=== PATIENT | male | born 1930 | race Caucasian/White ===

== ENCOUNTER 2018-05-21 12:02 | Inpatient (IN) | payer MEDICARE ==
[2018-05-21] MEDS ORDERED: Ondansetron ODT 4 MG TAB PO PRN (16:57)
[2018-05-21 17:06] VITALS: BMI 21.2
--- NOTE | 2018-05-22 00:18 | HP ---
REASON FOR ADMISSION TO SWING BED: Diffuse weakness, debilitation, and recent falls. HISTORY OF PRESENT ILLNESS: The patient is an 88-year-old white male who has had a fairly healthy life, who over the last few weeks has had some rapid decline in balance since [place] time and has had frequent falls. Apparently, prior to admission, he lost his balance and fell while in the kitchen and could not get up. He was found the next day by a friend and taken to the emergency room. The patient had CT scan and MRI of the brain, which showed cerebral atrophy, but no actual acute changes. He underwent a carotid ultrasound as well as a CT angio of the vascular system which showed no significant stenosis. He was observed in Telemetry and had no significant arrhythmias, but continued to be weak, debilitating, and required a walker with unsteady gait. Due to his increased risk of falls and recent decline in status, he was found appropriate to transfer to [facility] for correction care. PAST MEDICAL HISTORY: Includes: 1. Benign prostatic hypertrophy. 2. Dyslipidemia. 3. Elevated blood pressure. PAST SURGICAL HISTORY: Includes tonsillectomy. SOCIAL HISTORY: The patient drinks one to two glasses of wine on a daily basis and no significant smoking or other social drug use. The patient had been independent in activities of daily living, but he does live alone and is elderly. FAMILY HISTORY: No significant family history of CVA or coronary artery disease. MEDICATIONS: 1. Flomax 0.4 mg daily. 2. Aspirin 81 mg daily. 3. Finasteride 5 mg daily. REVIEW OF SYSTEMS: See recent history and physical. The patient presently does report some generalized weakness and some increasing forgetfulness with short-term memory, but otherwise denies any fevers, chills, or night sweats. No nausea, vomiting, or diarrhea. No chest pain or shortness of breath. The patient denies any palpitations. No obvious syncopal spells. The patient denies dysuria, hematuria, or change in urinary frequency. No weight gain or weight loss. The patient denies depression. PHYSICAL EXAMINATION: GENERAL: Elderly white male, pleasant, in no obvious distress. VITAL SIGNS: Significant for blood pressure 162/88, respiratory rate was 16, pulse was 82. O2 sat is 97% on room air. HEENT: Atraumatic and normocephalic. Extraocular movements are intact. Pupils are equal, round, and reactive to light and accommodation. Oropharynx, mucous membranes moist. No exudates, discharge, or lesions. NECK: Supple. No masses palpated. No bruits auscultated. CHEST: Clear to auscultation bilaterally. HEART: Regular rate and rhythm without murmurs, rubs, or gallops. ABDOMEN: Soft, nontender, and nondistended. No masses are palpated. EXTREMITIES: Show thin extremities but no cyanosis, clubbing, or edema. There was some chronic contracture of the right third, fourth, and fifth fingers. ASSESSMENT AND PLAN: 1. Recent fall with generalized weakness, suspect this to be multifactorial, workup showed no significant cardiovascular new neurological reasons acutely to cause his recent decline, likely related to age, some decreased proprioception and overall debilitation while living alone. The patient is appropriate to be admitted to swing bed for skilled therapy, including occupational therapy and physical therapy. We will also try to encourage diet with high-calorie shakes to increase his overall muscle weight and we will discuss with family disposition. 2. Hypertension, new onset diagnosis. The patient was started on amlodipine. We will follow his blood pressure. 3. Benign prostatic hypertrophy. Continue his current medications. 4. Disposition: The patient wishes to be a DNAR, to discuss with patient and daughter in detail. All questions were answered. The patient would like to go back to home, but discussed the need for likely long-term aid and daily care assistance. We will see how he improves with his physical and occupational therapies. Job ID: [id number]
[2018-05-22] MEDS ORDERED: Albuterol Sulfate 1.25 MG/3 ML NEB ONE (06:56)
[2018-05-22] MEDS: Tamsulosin HCl 0.4 MG CAP PO SCH (09:15)
[2018-05-22] MEDS: Amlodipine 5 MG TAB PO SCH (09:15)
[2018-05-22] MEDS: Aspirin 81 mg Enteric Coated Tablet PO SCH (09:15)
[2018-05-22] MEDS: Finasteride 5 MG TAB PO SCH ×2 (11:17→14:19)
--- NOTE | 2018-05-22 13:08 | RAD ---
RIGHT HIP 2 VIEWS: DATE: 05/22/2018. FINDINGS: Mild degenerative changes are seen consisting of small osteophytes and slight joint space narrowing. The appearance of the hip is fairly similar to the opposite side. No fracture or area of bony destr uction was seen. The bony pelvis was unremarkable. There are substantial degenerative changes in th e lower lumbar spine, especially at L4-L5. IMPRESSION: Mild degenerative changes of the hip. Prominent degenerative changes of the lower lumbar spine. POS: HOME
[2018-05-22 14:10] LABS: Clarity Clear (Clear); Glucose, Urine (Dipstick) Negative (Negative); Leukocyte Negative (Negative); Nitrite Negative (Negative); Protein, Urine (Dipstick) 100 mg/dL (Neg-Trace); Specific Gravity, Urine 1.015 (1.005-1.030)
[2018-05-22 14:11] LABS: Bacteria/HPF None Seen HPF (None Seen); Bilirubin Negative (Negative); Blood, Urine Trace (Negative); Crystals/HPF None Seen HPF (Negative); Hyaline Casts/LPF NONE SEEN LPF (0-3 Hyaline); Other Casts/LPF None Seen LPF (0-3 Hyaline); Oval Fat Bodies/HPF None Seen HPF (None Seen); Renal Epithelial None Seen HPF (0-3); Sperm/HPF None Seen HPF (None Seen); Squamous Epithelial None Seen HPF (0-3); Transitional Epithelial NONE SEEN HPF (0-3); Trichomonas/HPF None Seen HPF (None Seen); Urobilinogen > or = 8.0 mg/dL (0.2-1.0); WBC/HPF None Seen HPF (0-3); Yeast-All Forms None Seen HPF (None Seen)
[2018-05-22] MEDS ORDERED: Gentamicin Ophth Soln 0.3% 5 ml Bottle ONE (16:26)
[2018-05-22] MEDS: Gentamicin Ophth Soln 0.3% 5 ml Bottle EA EYE SCH ×2 (16:34→21:45)
[2018-05-22] MEDS ORDERED: Cefuroxime 500 MG TAB ONE (21:23)
[2018-05-22] MEDS: Cefuroxime 500 MG TAB PO SCH (21:46)
[2018-05-23] MEDS: Gentamicin Ophth Soln 0.3% 5 ml Bottle EA EYE SCH ×6 (01:29→21:07)
[2018-05-23 05:06] LABS: ALT (SGPT) 36 U/L (8-55); AST (SGOT) 31 U/L (5-34); Alkaline Phosphatase 62 U/L (40-150); Anion Gap 12 mmol/L (10-20); BUN (Urea Nitrogen) 13 mg/dL (8.4-25.7); Bilirubin, Total 0.6 mg/dL (0.2-1.2); Calc. Creatinine Clearance 47 mL/min (70-130); Calcium 9.7 mg/dL (7.8-10.44); Carbon Dioxide 26 mmol/L (23-31); Chloride 102 mmol/L (98-107); Estimated GFR-MDRD 64; Globulin 3.1 g/dL (2.4-3.5); Glucose 125 mg/dL (83-110); Potassium 3.3 mmol/L (3.5-5.1); Protein, Total 6.1 g/dL (5.8-8.1); Sodium 137 mmol/L (136-145)
[2018-05-23] MEDS ORDERED: Cefuroxime 500 MG TAB ONE ×2 (08:36→20:17)
[2018-05-23] MEDS: Finasteride 5 MG TAB PO SCH (08:39)
[2018-05-23] MEDS: Cefuroxime 500 MG TAB PO SCH ×2 (08:40→21:07)
[2018-05-23] MEDS: Aspirin 81 mg Enteric Coated Tablet PO SCH (08:40)
[2018-05-23] MEDS: Amlodipine 5 MG TAB PO SCH (08:41)
[2018-05-23] MEDS: Tamsulosin HCl 0.4 MG CAP PO SCH (08:42)
[2018-05-23] MEDS: Acetaminophen 325 MG TAB PO PRN (13:53)
[2018-05-24] MEDS: Gentamicin Ophth Soln 0.3% 5 ml Bottle EA EYE SCH ×6 (00:33→20:58)
[2018-05-24] MEDS: Cefuroxime 500 MG TAB PO SCH ×2 (08:35→20:59)
[2018-05-24] MEDS: Tamsulosin HCl 0.4 MG CAP PO SCH (08:36)
[2018-05-24] MEDS: Aspirin 81 mg Enteric Coated Tablet PO SCH (08:37)
[2018-05-24] MEDS: Finasteride 5 MG TAB PO SCH (08:37)
[2018-05-24] MEDS: Amlodipine 5 MG TAB PO SCH (08:37)
[2018-05-24] MEDS: Potassium Chloride 10 MEQ TAB PO SCH (08:38)
[2018-05-24] MEDS: Fluticasone Propionate Nasal Spray 16 gm Bottle NASAL SCH (10:53)
[2018-05-24] MEDS: Acetaminophen 325 MG TAB PO PRN (20:59)
[2018-05-24] MEDS: Docusate 100 MG CAP PO PRN (20:59)
[2018-05-25] MEDS: Gentamicin Ophth Soln 0.3% 5 ml Bottle EA EYE SCH ×6 (01:04→20:19)
[2018-05-25] MEDS: Fluticasone Propionate Nasal Spray 16 gm Bottle NASAL SCH (09:30)
[2018-05-25] MEDS: Finasteride 5 MG TAB PO SCH (09:31)
[2018-05-25] MEDS: Potassium Chloride 10 MEQ TAB PO SCH (09:31)
[2018-05-25] MEDS: Tamsulosin HCl 0.4 MG CAP PO SCH (09:31)
[2018-05-25] MEDS: Cefuroxime 500 MG TAB PO SCH ×2 (09:31→20:19)
[2018-05-25] MEDS: Aspirin 81 mg Enteric Coated Tablet PO SCH (09:32)
[2018-05-25] MEDS: Amlodipine 5 MG TAB PO SCH (09:34)
[2018-05-25] MEDS: Acetaminophen 325 MG TAB PO PRN (09:38)
[2018-05-26] MEDS: Gentamicin Ophth Soln 0.3% 5 ml Bottle EA EYE SCH ×6 (01:25→21:11)
[2018-05-26] MEDS: Fluticasone Propionate Nasal Spray 16 gm Bottle NASAL SCH (08:27)
[2018-05-26] MEDS: Amlodipine 5 MG TAB PO SCH (08:27)
[2018-05-26] MEDS: Potassium Chloride 10 MEQ TAB PO SCH (08:28)
[2018-05-26] MEDS: Tamsulosin HCl 0.4 MG CAP PO SCH (08:28)
[2018-05-26] MEDS: Finasteride 5 MG TAB PO SCH (08:28)
[2018-05-26] MEDS: Aspirin 81 mg Enteric Coated Tablet PO SCH (08:28)
[2018-05-26] MEDS ORDERED: Cefuroxime 500 MG TAB ONE (08:35)
[2018-05-26] MEDS: Cefuroxime 500 MG TAB PO SCH ×2 (08:36→21:11)
[2018-05-27] MEDS: Gentamicin Ophth Soln 0.3% 5 ml Bottle EA EYE SCH ×6 (00:07→21:20)
[2018-05-27] MEDS: Fluticasone Propionate Nasal Spray 16 gm Bottle NASAL SCH (08:29)
[2018-05-27] MEDS: Finasteride 5 MG TAB PO SCH (08:30)
[2018-05-27] MEDS: Amlodipine 5 MG TAB PO SCH (08:30)
[2018-05-27] MEDS: Aspirin 81 mg Enteric Coated Tablet PO SCH (08:30)
[2018-05-27] MEDS: Tamsulosin HCl 0.4 MG CAP PO SCH (08:30)
[2018-05-27] MEDS: Potassium Chloride 10 MEQ TAB PO SCH (08:31)
[2018-05-27] MEDS ORDERED: Cefuroxime 500 MG TAB ONE (08:40)
[2018-05-27] MEDS: Cefuroxime 500 MG TAB PO SCH ×2 (08:43→21:20)
[2018-05-28] MEDS: Gentamicin Ophth Soln 0.3% 5 ml Bottle EA EYE SCH ×6 (01:57→21:06)
[2018-05-28] MEDS ORDERED: Cefuroxime 500 MG TAB ONE (08:31)
[2018-05-28] MEDS: Fluticasone Propionate Nasal Spray 16 gm Bottle NASAL SCH (08:45)
[2018-05-28] MEDS: Tamsulosin HCl 0.4 MG CAP PO SCH (08:46)
[2018-05-28] MEDS: Amlodipine 5 MG TAB PO SCH (08:46)
[2018-05-28] MEDS: Cefuroxime 500 MG TAB PO SCH ×2 (08:46→21:06)
[2018-05-28] MEDS: Potassium Chloride 10 MEQ TAB PO SCH (08:46)
[2018-05-28] MEDS: Finasteride 5 MG TAB PO SCH (08:46)
[2018-05-28] MEDS: Aspirin 81 mg Enteric Coated Tablet PO SCH (08:47)
[2018-05-28] MEDS ORDERED: Gentamicin Ophth Soln 0.3% 5 ml Bottle ONE (08:55)
[2018-05-29] MEDS: Gentamicin Ophth Soln 0.3% 5 ml Bottle EA EYE SCH ×6 (02:39→20:52)
[2018-05-29] MEDS: Aspirin 81 mg Enteric Coated Tablet PO SCH (08:23)
[2018-05-29] MEDS: Potassium Chloride 10 MEQ TAB PO SCH (08:23)
[2018-05-29] MEDS: Cefuroxime 500 MG TAB PO SCH ×2 (08:23→20:51)
[2018-05-29] MEDS: Fluticasone Propionate Nasal Spray 16 gm Bottle NASAL SCH (08:23)
[2018-05-29] MEDS: Finasteride 5 MG TAB PO SCH (08:23)
[2018-05-29] MEDS: Amlodipine 5 MG TAB PO SCH (08:24)
[2018-05-29] MEDS: Tamsulosin HCl 0.4 MG CAP PO SCH (08:25)
[2018-05-29] MEDS: Docusate 100 MG CAP PO PRN (20:52)
[2018-05-30] MEDS: Gentamicin Ophth Soln 0.3% 5 ml Bottle EA EYE SCH ×6 (01:25→21:05)
[2018-05-30] MEDS: Docusate 100 MG CAP PO PRN (08:34)
[2018-05-30] MEDS: Amlodipine 5 MG TAB PO SCH (08:34)
[2018-05-30] MEDS: Potassium Chloride 10 MEQ TAB PO SCH (08:34)
[2018-05-30] MEDS: Acetaminophen 325 MG TAB PO PRN (08:35)
[2018-05-30] MEDS: Fluticasone Propionate Nasal Spray 16 gm Bottle NASAL SCH (08:35)
[2018-05-30] MEDS: Finasteride 5 MG TAB PO SCH (08:35)
[2018-05-30] MEDS: Cefuroxime 500 MG TAB PO SCH ×2 (08:35→21:05)
[2018-05-30] MEDS: Aspirin 81 mg Enteric Coated Tablet PO SCH (08:35)
[2018-05-30] MEDS: Tamsulosin HCl 0.4 MG CAP PO SCH (08:35)
[2018-05-31] MEDS: Gentamicin Ophth Soln 0.3% 5 ml Bottle EA EYE SCH ×6 (01:16→20:00)
[2018-05-31] MEDS: Potassium Chloride 10 MEQ TAB PO SCH (08:13)
[2018-05-31] MEDS: Docusate 100 MG CAP PO PRN (08:13)
[2018-05-31] MEDS: Fluticasone Propionate Nasal Spray 16 gm Bottle NASAL SCH (08:13)
[2018-05-31] MEDS: Amlodipine 5 MG TAB PO SCH (08:13)
[2018-05-31] MEDS: Tamsulosin HCl 0.4 MG CAP PO SCH (08:13)
[2018-05-31] MEDS: Finasteride 5 MG TAB PO SCH (08:13)
[2018-05-31] MEDS: Cefuroxime 500 MG TAB PO SCH ×2 (08:13→20:00)
[2018-05-31] MEDS: Aspirin 81 mg Enteric Coated Tablet PO SCH (08:13)
[2018-06-01] MEDS: Gentamicin Ophth Soln 0.3% 5 ml Bottle EA EYE SCH ×5 (02:19→17:32)
[2018-06-01] MEDS: Tamsulosin HCl 0.4 MG CAP PO SCH (08:41)
[2018-06-01] MEDS: Fluticasone Propionate Nasal Spray 16 gm Bottle NASAL SCH (08:41)
[2018-06-01] MEDS: Amlodipine 5 MG TAB PO SCH (08:42)
[2018-06-01] MEDS: Potassium Chloride 10 MEQ TAB PO SCH (08:42)
[2018-06-01] MEDS: Finasteride 5 MG TAB PO SCH (08:43)
[2018-06-01] MEDS: Cefuroxime 500 MG TAB PO SCH ×2 (08:43→20:46)
[2018-06-01] MEDS: Aspirin 81 mg Enteric Coated Tablet PO SCH (08:43)
[2018-06-01] MEDS: Docusate 100 MG CAP PO PRN (09:19)
[2018-06-01] MEDS: oFLOXacin 0.3% Opth 5 ML BOT EA EYE SCH (20:45)
[2018-06-02] MEDS: Levothyroxine Sodium 50 MCG TAB PO SCH (06:05)
[2018-06-02] MEDS: Potassium Chloride 10 MEQ TAB PO SCH (08:53)
[2018-06-02] MEDS: Amlodipine 5 MG TAB PO SCH (08:53)
[2018-06-02] MEDS: Aspirin 81 mg Enteric Coated Tablet PO SCH (08:53)
[2018-06-02] MEDS: Tamsulosin HCl 0.4 MG CAP PO SCH (08:54)
[2018-06-02] MEDS: Finasteride 5 MG TAB PO SCH (08:54)
[2018-06-02] MEDS: Cefuroxime 500 MG TAB PO SCH ×2 (08:55→21:08)
[2018-06-02] MEDS: Fluticasone Propionate Nasal Spray 16 gm Bottle NASAL SCH (08:56)
[2018-06-02] MEDS: Gentamicin Ophth Soln 0.3% 5 ml Bottle EA EYE SCH (08:58)
[2018-06-02] MEDS: oFLOXacin 0.3% Opth 5 ML BOT EA EYE SCH ×4 (08:59→21:09)
[2018-06-02] MEDS: Acetaminophen 325 MG TAB PO PRN (21:07)
[2018-06-03] MEDS: Levothyroxine Sodium 50 MCG TAB PO SCH (06:19)
[2018-06-03] MEDS: Amlodipine 5 MG TAB PO SCH (08:47)
[2018-06-03] MEDS: Finasteride 5 MG TAB PO SCH (08:48)
[2018-06-03] MEDS: Aspirin 81 mg Enteric Coated Tablet PO SCH (08:48)
[2018-06-03] MEDS: Tamsulosin HCl 0.4 MG CAP PO SCH (08:48)
[2018-06-03] MEDS: Fluticasone Propionate Nasal Spray 16 gm Bottle NASAL SCH (08:49)
[2018-06-03] MEDS: oFLOXacin 0.3% Opth 5 ML BOT EA EYE SCH ×4 (08:49→23:39)
[2018-06-03] MEDS: Cefuroxime 500 MG TAB PO SCH ×2 (08:49→23:39)
[2018-06-03] MEDS: Potassium Chloride 10 MEQ TAB PO SCH (08:50)
[2018-06-04] MEDS: Levothyroxine Sodium 50 MCG TAB PO SCH (06:18)
[2018-06-04] MEDS: Potassium Chloride 10 MEQ TAB PO SCH (09:15)
[2018-06-04] MEDS: Tamsulosin HCl 0.4 MG CAP PO SCH (09:17)
[2018-06-04] MEDS: Amlodipine 5 MG TAB PO SCH (09:18)
[2018-06-04] MEDS: Finasteride 5 MG TAB PO SCH (09:18)
[2018-06-04] MEDS: Aspirin 81 mg Enteric Coated Tablet PO SCH (09:19)
[2018-06-04] MEDS: Cefuroxime 500 MG TAB PO SCH ×2 (09:20→22:49)
[2018-06-04] MEDS: Fluticasone Propionate Nasal Spray 16 gm Bottle NASAL SCH (09:21)
[2018-06-04] MEDS: oFLOXacin 0.3% Opth 5 ML BOT EA EYE SCH ×4 (09:22→22:49)
[2018-06-04 15:28] LABS: Anion Gap 14 mmol/L (10-20); BUN (Urea Nitrogen) 22 mg/dL (8.4-25.7); Calc. Creatinine Clearance 42 mL/min (70-130); Calcium 10.6 mg/dL (7.8-10.44); Carbon Dioxide 25 mmol/L (23-31); Chloride 103 mmol/L (98-107); Estimated GFR-MDRD 56; Glucose 106 mg/dL (83-110); Potassium 4.4 mmol/L (3.5-5.1); Sodium 138 mmol/L (136-145)
[2018-06-05] MEDS: Levothyroxine Sodium 50 MCG TAB PO SCH (05:26)
[2018-06-05] MEDS: Tamsulosin HCl 0.4 MG CAP PO SCH (09:30)
[2018-06-05] MEDS: Cefuroxime 500 MG TAB PO SCH (09:30)
[2018-06-05] MEDS: Potassium Chloride 10 MEQ TAB PO SCH (09:30)
[2018-06-05] MEDS: Finasteride 5 MG TAB PO SCH (09:31)
[2018-06-05] MEDS: Aspirin 81 mg Enteric Coated Tablet PO SCH (09:31)
[2018-06-05] MEDS: Docusate 100 MG CAP PO PRN ×2 (09:31→19:57)
[2018-06-05] MEDS: oFLOXacin 0.3% Opth 5 ML BOT EA EYE SCH ×4 (09:31→19:57)
[2018-06-05] MEDS: Amlodipine 5 MG TAB PO SCH (09:31)
[2018-06-05] MEDS: Fluticasone Propionate Nasal Spray 16 gm Bottle NASAL SCH (09:32)
[2018-06-06] MEDS: Docusate 100 MG CAP PO PRN (09:44)
[2018-06-06] MEDS: Amlodipine 5 MG TAB PO SCH (09:44)
[2018-06-06] MEDS: Aspirin 81 mg Enteric Coated Tablet PO SCH (09:44)
[2018-06-06] MEDS: Potassium Chloride 10 MEQ TAB PO SCH (09:47)
[2018-06-06] MEDS: oFLOXacin 0.3% Opth 5 ML BOT EA EYE SCH ×4 (09:47→21:25)
[2018-06-06] MEDS: Fluticasone Propionate Nasal Spray 16 gm Bottle NASAL SCH (09:47)
[2018-06-06] MEDS: Tamsulosin HCl 0.4 MG CAP PO SCH (09:47)
[2018-06-06] MEDS: Finasteride 5 MG TAB PO SCH (09:47)
[2018-06-06] MEDS ORDERED: Milk Of Magnesia 30 ML UDCUP PO PRN (17:35)
[2018-06-07] MEDS: Levothyroxine Sodium 50 MCG TAB PO SCH (05:08)
[2018-06-07] MEDS: Docusate 100 MG CAP PO PRN (05:08)
[2018-06-07] MEDS: Fluticasone Propionate Nasal Spray 16 gm Bottle NASAL SCH (10:12)
[2018-06-07] MEDS: Amlodipine 5 MG TAB PO SCH (10:13)
[2018-06-07] MEDS: Aspirin 81 mg Enteric Coated Tablet PO SCH (10:13)
[2018-06-07] MEDS: Tamsulosin HCl 0.4 MG CAP PO SCH (10:13)
[2018-06-07] MEDS: oFLOXacin 0.3% Opth 5 ML BOT EA EYE SCH ×4 (10:13→22:13)
[2018-06-07] MEDS: Potassium Chloride 10 MEQ TAB PO SCH (10:14)
[2018-06-07] MEDS: Finasteride 5 MG TAB PO SCH (10:14)
[2018-06-08] MEDS: Levothyroxine Sodium 50 MCG TAB PO SCH (05:39)
[2018-06-08] MEDS: Amlodipine 5 MG TAB PO SCH (08:48)
[2018-06-08] MEDS: Finasteride 5 MG TAB PO SCH (08:49)
[2018-06-08] MEDS: Aspirin 81 mg Enteric Coated Tablet PO SCH (08:49)
[2018-06-08] MEDS: Tamsulosin HCl 0.4 MG CAP PO SCH (08:49)
[2018-06-08] MEDS: Potassium Chloride 10 MEQ TAB PO SCH (08:49)
[2018-06-08] MEDS: oFLOXacin 0.3% Opth 5 ML BOT EA EYE SCH ×4 (08:50→19:53)
[2018-06-08] MEDS: Fluticasone Propionate Nasal Spray 16 gm Bottle NASAL SCH (08:50)
--- NOTE | 2018-06-08 17:56 | DIS ---
DATE OF ADMISSION: 05/21/2018 DATE OF DISCHARGE: 06/09/2018 ADMISSION DIAGNOSES: 1. Debilitation and weakness related to multifactorial process. 2. Hypertension. 3. Benign prostatic hypertrophy. DISCHARGE DIAGNOSES: 1. Recent debilitation, multifactorial in nature, now at plateau status. 2. Dementia with recent rapid deterioration. 3. New onset hypertension, controlled. 4. Benign prostatic hypertrophy. BRIEF SUMMARY OF HISTORY AND PHYSICAL: The patient is an 88-year-old white male, who was admitted to [facility] after having about a 1-month period of fairly rapid decline in the patient's ability to ambulate, his mental ability, and his overall functioning. He fell to the point where he had difficulty getting up and thus was sent to the emergency room and admitted to the hospital. While at the hospital in [place], he had a full workup, which was showing no acute findings causing his deterioration other than multifactorial processes on top of progressive dementia. HOSPITAL COURSE: The patient was admitted to [facility] for rehab and both occupational and physical therapy. On review of his hospital records, he did have signs of sinusitis and was placed on oral antibiotics as well as Flonase nose spray, and he had significant conjunctivitis, which was treated with ophthalmic drops. During his stay, he did improve slightly in his strength and balance, and he learned to transfer using a walker, a wheelchair, a bedside commode, and a shower chair. The patient reached the plateau status, but did need 24-hour assistance in care and this was discussed with the family and they developed the plan for 24-hour correction care, which will be arranged at discharge. DISCHARGE MEDICATIONS: 1. Levothyroxine 50 mcg daily. The patient had been on thyroid medication in the past. Apparently, he had stopped it recently as TSH was on the borderline for need of medication. 2. Amlodipine, the patient will start on 5 mg daily. 3. Flomax 0.4 mg daily. 4. Proscar 5 mg daily. 5. Aspirin 81 mg daily. DISCHARGE PLAN: Debilitation. The patient will undergo home health occupational and physical therapy. On a [id number] exam, the patient required manual wheelchair to help him move from room to room due to his diffuse weakness, which was found on physical exam with generalized weakness of all his extremities. The patient will also need a walker due to need to transfer from wheelchair to the bathroom and to the bed. He will require a bedside commode. On physical exam, he had obvious signs of weakness and at times especially in the evenings when getting out of bed, he will need a bedside commode to help with his functional needs. Finally, he will need a shower chair to help him and his correction caregiver to provide bathing needs since the patient cannot stand up throughout the entire time of a shower. Thus, during my [id number] encounter with the patient, he will need a wheelchair, bedside commode, rolling walker, and shower chair. In addition, the patient will need a hospital bed to help him get out of the bed and transfer to his walker and/or wheelchair. Of note, on physical exam, he did have generalized weakness with 4+/5 motor strength in all extremities. The patient had a slightly shuffling wide-based gait and did need some assistance with transfers. The patient will be discharged to home. He was told to follow up with Dr. Yap, his primary care physician within 10 days as well as net sorter, Dr. Amaro, within 7 days. Job ID: [id number]
[2018-06-09] MEDS: Levothyroxine Sodium 50 MCG TAB PO SCH (06:15)
[2018-06-09 06:33] VITALS: TEMP 98.1
[2018-06-09] MEDS: Potassium Chloride 10 MEQ TAB PO SCH (10:51)
[2018-06-09] MEDS: Amlodipine 5 MG TAB PO SCH (10:52)
[2018-06-09] MEDS: Finasteride 5 MG TAB PO SCH (10:54)
[2018-06-09] MEDS: oFLOXacin 0.3% Opth 5 ML BOT EA EYE SCH (10:54)
[2018-06-09] MEDS: Tamsulosin HCl 0.4 MG CAP PO SCH (10:54)
[2018-06-09 10:55] VITALS: BP 108/61
[2018-06-09] MEDS: Fluticasone Propionate Nasal Spray 16 gm Bottle NASAL SCH (10:55)
[2018-06-09] MEDS: Aspirin 81 mg Enteric Coated Tablet PO SCH (10:56)
== END 2018-06-09 14:50 | disposition home or self-care (01) | DRG 93 ==
LOC: BURMED 16:38
PROVIDERS: ADMIT Family Medicine; ATTEND Family Medicine
DX: R26.89 Other abnormalities of gait and mobility (principal); R26.81 Unsteadiness on feet; N40.0 Benign prostatic hyperplasia without lower urinary tract symptoms; E78.5 Hyperlipidemia, unspecified; Z66 Do not resuscitate; I10 Essential (primary) hypertension; R53.1 Weakness; F03.90 Unspecified dementia, unspecified severity, without behavioral disturbance, psychotic disturbance, mood disturbance, and anxiety; R53.81 Other malaise; Z90.89 Acquired absence of other organs; Z79.82 Long term (current) use of aspirin; Z79.899 Other long term (current) drug therapy
CPT/HCPCS: 36415; 80048; 80053; 81003; 81015; 84443